=== PATIENT | male | born 1960 | race Caucasian/White ===

== ENCOUNTER 2017-03-20 12:36 | Observation (INO) | payer OTHER ==
[~2017-03-20] VITALS: Ht 182.9 cm; Wt 122.6 kg
--- NOTE | ~2017-03-20 | CON ---
PATIENT'S NAME: AARON HAN [facility] AGE: 56 Y [address] ROOM: [id number] [place], [place] [address] LOCATION: GICU ADMIT DATE: 03/20/2017 Consultation DISCHARGE DATE: FAMILY PHYSICIAN: PHYSICIAN, NO ATTENDING PHYSICIAN: DEENA NELSON DATE OF CONSULTATION: 03/20/2017 REFERRING PHYSICIAN: DEENA MELENDEZ MD NEUROLOGIC CONSULTATION REASON FOR CONSULTATION: The patient was seen on 03/20/2017 at 2:00 p.m. at the request of Dr. Val Henson in the emergency room. 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 Both he, his , and family came from [facility] [place] [place]. They stayed locally in a hotel, and then went for the past 2 days to [place] to a camp site to watch the eclipse. The patient yesterday was outside setting up his tent when he was experiencing some odd symptoms that was quite mixed. He was experiencing sensation of burning of his face, but without any redness. The burning of the face was both sides of the face but not onto the top of the head or elsewhere. He thought that his blood pressure was perhaps high, and he was a bit overheated, and he went to a local urgent care facility. Apparently, he was doing fine there and was discharged and actually felt better later in the day and had a good night. This morning, however, he started to feel a bit weak and queasy and somewhat lightheaded. He also complained about some clumsiness of his left side, and even was noted by his to have difficulty getting his leg out of the car on the way into the emergency room. She also noted that his speech was heavier and a bit slurred. All this lasted for a total of perhaps 1 hour or so, especially just the main symptoms of left leg weakness and perhaps some fullness of his speech. The patient denied any numbness or tingling of the hemibody. He denied any visual complaints. He did not have a headache at that time. He denied any shortness of breath or dyspnea on exertion. On physical exam today, he actually had quite a normal physical exam, and I rated the patient perhaps a one based upon questionable dysmetria on [id number] on the left. Otherwise, the physical exam was completely benign. Based upon the lack of a clear onset in the patient's symptoms suggestive of a stroke and very subtle findings of this nature on physical exam, this would not place the patient as a candidate for tPA. PRIOR MEDICAL HISTORY: He has a history of hypertension. PATIENT'S NAME: AARON HAN [facility] AGE: 56 Y [address] ROOM: [place] [address] LOCATION: [facility] ADMIT DATE: 03/20/2017 Consultation DISCHARGE DATE: FAMILY PHYSICIAN: PHYSICIAN, NO ATTENDING PHYSICIAN: DEENA NELSON SOCIAL HISTORY: The patient is an active gentleman, though he is obese. He denies any smoking; however, he occasionally has alcohol. He is for 24 years. He has 2 children, one boy and one girl, who are present at the emergency room today. CURRENT MEDICATIONS: At home include: 1. Aspirin 81 mg daily. 2. Lisinopril 10 mg p.o. daily. 3. Amlodipine 10 mg p.o. daily. 4. Doxazosin 2 mg p.o. daily. 5. Terfenadine 250 mg for nail fungus. ALLERGIES: NO KNOWN DRUG ALLERGIES. PAST SURGICAL HISTORY: He has bilateral hip replacements. He has had some bilateral hand and wrist surgeries in the past. He is nonspecific. REVIEW OF SYSTEMS: The patient has sensation of lightheadedness, fatigue, as well as possible focal weakness into his legs and associated with a bit of clumsiness of his leg in trying to get in and out of a car. There is questionable slurring of speech, though he is not dysarthric. He is a bit slow with his comprehension, though he has no evidence of any aphasia. He denied any loss of vision or double vision. Cardiac silva, he has a history of hypertension. He is noted to be in sinus bradycardia around 45 beats per minute. He has a long history of bradycardia. PHYSICAL EXAMINATION: GENERAL: The patient is in no acute distress, though he appears a bit withdrawn, slow in mentation. It is unclear if this is his baseline. VITAL SIGNS: Pulse of 45, respiration 12, blood pressure 136/82, temperature is afebrile. NEUROLOGIC: Cranial nerves: Pupils equal and reactive to light and accommodation. Extraocular muscles are intact. He has normal visual jensen. I did not appreciate any nystagmus on finger follow-through. He had normal smooth pursuit on eye following of my finger. There is no evidence of ophthalmoplegia. Neck is supple on flexion and extension. Normal puffing out of the cheeks and normal whistle. The patient has normal power of his tongue opposed into his cheek. Speech is nondysarthric. His power in the bilateral upper and lower extremities proximally and distally is 5/5 with normal bulk PATIENT'S NAME: AARON HAN [facility] AGE: 56 Y [address] ROOM: [id number] [place] [id number] LOCATION: [facility] ADMIT DATE: 03/20/2017 Consultation DISCHARGE DATE: FAMILY PHYSICIAN: PHYSICIAN, NO ATTENDING PHYSICIAN: DEENA NELSON and tone. Reflex is symmetric at the biceps +1, triceps +1, finger flexors +1, patellar reflexes +1, ankle jerk reflexes +1. Plantar reflexes are neutral. Sensory exam is completely normal to light touch and crude touch on his arms, legs, and torso. Rapid alternating hand movements perhaps a bit slower on the left and very subtle question of dysmetria on the left finger-to- nose. Rapid [id number] opposition is fairly normal. IMPRESSION: Mr. Han has risk factors for potential stroke based upon his hypertension. I do not find any clear concrete findings on his physical exam other than some mild potential dysmetria on [id number]-[id number] and may be a bit slower on rapid alternating hand movements on the left. This could suggest a very small brainstem stroke or cerebellar stroke. Seems to have had symptoms commenced yesterday when he was out in the heat, and it sounds as though he got flushed, initially sweaty, but then even potentially simply overheated. Therefore, the patient does need some IV fluid rehydration, and we would aim to keep his blood pressure a bit on the high end of normal until we have the results of the MRI to rule out evidence of the stroke. Certainly not a candidate for tPA based upon his very subtle symptoms and the time of onset of his symptoms have been variable and somewhat slurred and somewhat specific over the past 24 hours. He is currently not having any difficulty with dizziness. When placed in up and down position, he is not complaining about any vertigo symptoms and nothing on the eye movement exam is suggesting of active vertigo. He agreed for the stroke workup to include carotid artery study as well as echocardiogram. The patient is presently on daily aspirin, but we will consider placing Lipitor 80 mg daily. There is evidence for a stroke. Issue of his bradycardia is interesting. He is obese male, and I do not necessarily know if he is that afflictive to have a resting cardiac rhythm in the mid 40s as it may compromise his posture if he becomes dehydrated. Finally, the medication doxazosin is an alpha hina medication, either used for hypertension or for benign prostatic hypertrophy. This medication may have some negative effects as it may not help with autoregulation of blood pressure, could be considered speculative. The patient does ultimately show evidence for stroke. MD SHARMIN TIM/emilianol /[id number] d: 03/20/172048 t: 04/04/17 1639, CONSULTATION REPORT
--- NOTE | ~2017-03-20 | CON ---
PATIENT'S NAME: AARON MCKOY [facility] AGE: 57 Y [address] ROOM: [place] [address] LOCATION: GI ADMIT DATE: 03/20/2017 Consultation DISCHARGE DATE: FAMILY PHYSICIAN: PHYSICIAN, NO ATTENDING PHYSICIAN: DEENA NELSON REFERRING PHYSICIAN: DEENA PECK MD Consult for Dr. Peck. This 57-year-old, pleasantful gentleman was admitted on an 03/20 feeling on and off lightheaded, occasionally slurring of speech noticed by his . He later on was noted to have a little bit decreased coordination and strength in the left upper and lower extremities with some significant visual changes that also have improved ever since. He denied any shortness of breath. No chest pain. No similar condition in the past. No discomfort. No palpitation. Denied any fever. No nausea on vomiting. No abdominal pain. No leg swelling. He was found to be having bradycardia. Denied any tick exposures. PAST MEDICAL HISTORY: He has past history significant of: 1. Hypertension. 2. Arthritis, status post bilateral total hip arthroplasty. 3. Morbidly obese. SOCIAL HISTORY: He does not smoke and/or drink on a regular basis. PHYSICAL EXAMINATION: GENERAL: Alert and oriented now. He can comprehend, express without difficulty. His voice is clear and not wet. NEUROLOGIC: Cranial nerves 2 through 12 are within normal limits. Tongue and soft palate are moving symmetrical. There is no facial droop. No visual cut and/or neglect at the present time. He can at the present time talk. Speech is clear and not wet. At the present time, he is intact. Good bowel and bladder control. VITAL SIGNS: Blood pressure 176/86, temperature 97.6, pulse 50, respirations 16. He is 6 feet tall and weighs 128.5 kg. MEDICATIONS: 1. Lisinopril. 2. Flonase. 3. Cardura. PATIENT'S NAME: AARON MCKOY [facility] AGE: 57 Y [address] ROOM: [place] [address] LOCATION: [facility] ADMIT DATE: 03/20/2017 Consultation DISCHARGE DATE: FAMILY PHYSICIAN: PHYSICIAN, NO ATTENDING PHYSICIAN: DEENA NELSON 4. Claritin. 5. Norvasc. 6. Lipitor. 7. Ibuprofen. 8. Benadryl. 9. Vitamin B6. 10. Melatonin. 11. Sodium chloride 0.9%. 12. Tylenol. 13. Aspirin. 14. Valium. ASSESSMENT AND PLAN: I feel that this gentleman has made good progress. At the present time, I will continue him on PT/OT, which has been already initiated. I feel that he should not drive until he is evaluated by his family physician and I would think that if he continues to stay stable, he could follow with his family physician, however, he should not drive back to home. All the above was explained to him and the signs and symptoms of stroke discussed with him and also how to avoid pre-existing conditions such as obesity, decreased activity, and hypertension and treatment, and they verbalized understanding and in agreement. Thank you for this referral. I will follow alongside with you. MD ESTHER CUELLAR/iliana /[id number] d: 03/21/17 1743 t: 03/22/17 0716, CONSULTATION REPORT
--- NOTE | ~2017-03-20 | HP ---
PATIENT'S NAME: AARON MCKOY [facility] AGE: 56 Y [address] ROOM: [id number] [place], [place] [address] LOCATION: [facility] ADMIT DATE: 03/20/2017 History & Physical DISCHARGE DATE: FAMILY PHYSICIAN: PHYSICIAN, NO ATTENDING PHYSICIAN: DEENA NELSON DATE OF SERVICE: 03/20/2017 CHIEF COMPLAINT: Left-sided weakness. HISTORY OF PRESENT ILLNESS: This is a very pleasant 56-year-old male from [place], who comes in today with several hours of intermittent "feeling off," noting primarily lightheadedness, occasional slurred speech as noted per his , as well as mild left-sided weakness and difficulty getting in and out of the vehicle. 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 The patient has never had an episode similar to this previously. He notes no significant vision changes, no recent heart palpitations, no chest pain, no shortness of breath, and currently notes that his symptoms are improved from initial presentation. The time of onset is not obvious to the patient or , just that it has been within the past 24 hours and to a degree, it has been waxing and waning. The patient denies any recent fevers, chills. No nausea or vomiting associated with the symptoms as well as no chest pain, shortness of breath, abdominal pain, or leg swelling. In the ED, workup notable for negative head CT, found to be bradycardic to 40s. He traveled down to the [facility] for solar eclipse viewing today and notes that he has not been otherwise camping. No recent tick exposure or other significant exposures that he is aware of. He is not on beta hina therapy. He has otherwise been in his usual state of health and taking his normal medications for history of hypertension. PAST MEDICAL HISTORY: 1. Essential hypertension, controlled on lisinopril 10 mg, amlodipine 10 mg, and doxazosin 2 mg daily. 2. Osteoarthritis, status post bilateral total hip arthroplasties. 3. Morbid Obesity, BMI >50. FAMILY HISTORY: A complete family history reviewed and noncontributory to current presentation. SOCIAL HISTORY: The patient lives in [place]. Does not endorse any significant chewing tobacco nor smoking exposure of late. Also, notes he is an occasional drinker PATIENT'S NAME: AARON MCKOY [facility] AGE: 56 Y [address] ROOM: [id number] [place], [place] [address] LOCATION: [facility] ADMIT DATE: 03/20/2017 History & Physical DISCHARGE DATE: FAMILY PHYSICIAN: PHYSICIAN, NO ATTENDING PHYSICIAN: DEENA NELSON of several alcoholic beverages on the weekends, but none in the last few days. As noted, he lives in [place] with his and family. REVIEW OF SYSTEMS: Complete review of systems performed and negative except as noted above, history obtained primarily from the patient as well as his at bedside. MEDICATIONS: 1. Lisinopril 10 mg daily. 2. Doxazosin 2 mg daily. 3. Amlodipine 10 mg daily. 4. Aspirin 81 mg daily. 5. Terbinafine 250 mg. ALLERGIES: NO KNOWN DRUG ALLERGIES. PHYSICAL EXAMINATION: VITAL SIGNS: Reviewed in the emergency department. Notable for pulse 43, blood pressure 163/78, respiratory rate 16, afebrile, saturating 97% on room air. Noting pain of 2/10 (headache). GENERAL: The patient is alert and in no acute distress. Cooperative with exam. HEENT: Head is normocephalic and atraumatic. Notable for PERRL. EOMI. No nystagmus appreciated. Mucous membranes moist. NECK: Without significant carotid bruit. No thyromegaly. No JVD. Supple. CARDIOVASCULAR: Bradycardic without appreciable murmurs, rubs, or gallops. 2+ pulses bilaterally including dorsalis pedis and radial. RESPIRATIONS: Normal effort. Clear to auscultation bilaterally. Saturating well on room air. ABDOMEN: Obese. Soft. Nontender. Midline ventral hernia appreciated. EXTREMITIES: Without appreciable edema. NEUROLOGIC: Notable for occasionally slowed speech with rare difficulty with word findings noted more based on interaction with the patient's than in my direct examination currently. Rapid alternating movements of left side upper extremity mildly slowed compared to the right. Thought processes seem minimally slowed. Rest of neurologic exam largely benign including normal reflexes bilaterally including patellar and Achilles as well as brachioradialis. Normal strength 5/5 with packer dried beef bilaterally as well as plantar and dorsiflexion of the feet and hip motions. No nystagmus as noted above. No appreciable visual field deficit. LABORATORY DATA: Labs in the emergency room: White blood cell count 5.9, hemoglobin 15.1, platelets 209. INR 0.97. Troponin less than 0.04. Metabolic panel pending. PATIENT'S NAME: AARON MCKOY [facility] AGE: 56 Y [address] ROOM: [place] [address] LOCATION: [facility] ADMIT DATE: 03/20/2017 History & Physical DISCHARGE DATE: FAMILY PHYSICIAN: PHYSICIAN, NO ATTENDING PHYSICIAN: DEENA NELSON EKG showing sinus bradycardia. ASSESSMENT: 1. Transient ischemic attack versus cerebrovascular accident with mild residual deficits, not a candidate for tPA due to time to presentation. 2. Essential hypertension. 3. Obesity. PLAN: We will admit the patient to observation status and follow through with further evaluation for possible stroke given ongoing left-sided mild symptoms though very minimal at this point. Concern exists for potentially a cerebellar stroke given the predominance of balance difficulty as the primary symptom. Dr. Peck has been consulted, saw patient, and we discussed face- to-face in the emergency department. We will pursue MRI brain with and without contrast as well as MRA of head and neck, carotid Dopplers, and transthoracic echocardiogram. We will also start high-intensity statin with atorvastatin 80 mg daily and continue aspirin. Concern does exist that given patient's ongoing bradycardia, there may be some association between his bradycardia and lightheadedness, though this does not entirely explain his presentation nor his mild focal neurologic deficits. He reports heart rates chronically in the 40s. We will continue to appreciate Neurology's assistance going forward and consider cardiology consultation if symptoms recur and felt to contribute to symptoms. The patient is full code. Time spent on the date of admission with as [id number]-lgni interaction and coordinating care is 35 minutes. MD HORTENCIA MESA/iliana /[id number] D: [id number] T: [id number] HISTORY & PHYSICAL
--- NOTE | ~2017-03-20 | ER ---
PATIENT'S NAME: AARON MCKOY [facility] AGE: 57 Y [address] ROOM: [place] [address] LOCATION: GICU ADMIT DATE: 03/20/2017 ER/Outpatient Report DISCHARGE DATE: FAMILY PHYSICIAN: PHYSICIAN, NO ATTENDING PHYSICIAN: DEENA NAPIER TIME OF ARRIVAL: 1236 hours. TIME SEEN: 1308 hours. IDENTIFICATION: A 57-year-old male. CHIEF COMPLAINT: Left-sided weakness and numbness. HISTORY OF PRESENT ILLNESS: The patient is a 57-year-old male from [place] who is visiting here in town. Yesterday, felt a little bit dizzy and not quite right, went to an Urgent Care Center and was found to have some bradycardia, had an EKG and some lab work done, that was otherwise normal. This morning around breakfast at 8:30, he felt again a little bit lightheaded or off balance, a little weak, just not his usual self and then around 10 a.m. noted some weakness of his left-side and his thought he had some slurred speech, sounds like he has had a couple of drinks, which he has not. He does have a history of hypertension, this has never happened to him before, they are camping so at 1st they thought maybe he was just overheated. ALLERGIES: NO KNOWN DRUG ALLERGIES. CURRENT MEDICATIONS: 1. Aspirin 81 mg daily. 2. Lisinopril 10 mg daily. 3. Amlodipine 10 mg daily. 4. Doxazosin 2 mg daily. 5. Terbinafine 250 mg daily. MEDICAL PROBLEMS: Hypertension. PRIOR SURGERIES: Bilateral hip replacements, bilateral hand and wrist surgery. PATIENT'S NAME: AARON MCKOY [facility] AGE: 57 Y [address] ROOM: [place] [id number] LOCATION: GICU ADMIT DATE: 03/20/2017 ER/Outpatient Report DISCHARGE DATE: FAMILY PHYSICIAN: PHYSICIAN, DOMENICO ATTENDING PHYSICIAN: DEENA NAPIER SOCIAL HISTORY: The patient is . They live in [place]. Tobacco use, denies. Alcohol use, averages 2 times per month. Drug use, denies. REVIEW OF SYSTEMS: All systems reviewed and negative other than what is noted in the HPI. FAMILY HISTORY: Positive for strokes. PHYSICAL EXAMINATION: VITAL SIGNS: Weight 285 pounds, blood pressure 186/84, pulse 45, respirations 16, temperature 98.4, and sats 97% on room air. GENERAL: A 57-year-old male in no acute distress. HEENT: Head: Normocephalic, atraumatic. Ears: TMs translucent both ears. Eyes: Pupils equal and reactive to light and accommodation. Extraocular movements intact. Nose: Mucosa pink. No lesions or drainage. Mouth: No lesions. Pharynx benign. NECK: Supple. No lymphadenopathy. LUNGS: Clear to auscultation. HEART: Sinus bradycardia. No murmur, rub, or gallop. ABDOMEN: Bowel sounds present. Soft, nondistended. No hepatosplenomegaly. No palpable masses. Nontender. SKIN: [place], warm, and dry. No lesions or rashes noted. NEURO: The patient is alert and oriented x4. Cranial nerves 2 through 12 grossly intact. 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 Sensation is intact to light touch. NIH stroke scale score is 1. LABORATORY DATA: Troponin I less than 0.040. Renal panel unremarkable. Blood sugar is 114. CBC is normal. INR 0.97. EKG sinus bradycardia at 43 beats per minute. No acute ST-elevation or depression. The patient's blood pressure improved to 159/77, heart rate remained in the mid 40s, head CT without contrast, no acute findings per Radiology. IMPRESSION: 1. Cerebrovascular accident versus transient ischemic attack. 2. Hypertension. PLAN: Dr. Peck consulted, the patient does not have a definite start time and NIH stroke scale score is minimal, tPA was not recommended at this point. The PATIENT'S NAME: AARON MCKOY [facility] AGE: 57 Y [address] ROOM: [address] [place] [id number] LOCATION: [facility] ADMIT DATE: 03/20/2017 ER/Outpatient Report DISCHARGE DATE: FAMILY PHYSICIAN: PHYSICIAN, NO ATTENDING PHYSICIAN: DEENA NAPIER patient will be admitted per hospitalist. Dr. Napier evaluated the patient in the ER as well as Dr. Peck. The patient and his understand and agree and all questions have been answered. MD JADE BEARD/iliana /[id number] d: 03/21/1744 t: 03/29/172040, OUTPATIENT REPORT
--- NOTE | ~2017-03-20 | ECHO ---
Transthoracic Echocardiography Report (TTE) Demographics Patient Name AARON MCKOY Date of Study 03/21/2017 Patient Number [id number] Visit Number [id number] Date of 1960 Room Number G6216 Accession Number [id number] Gender Male Age 57 year(s) Referring Cisco Marin Lending Manager Jamal Healy RVT Physician Karthikeyan Solis CRUDE TESTER Physician Interpreting Rod Rushing Assistant Manager Bilingual Physician Allan HEARD Supervising Ordering Physician Cisco Marin MD/MLP Nurse Stress Intensive Care Nurse Conclusions Contractility Score Summary Normal Left Ventricular contractility was noted. Summary The estimated left ventricular ejection fraction is 60-65%. Moderate concentric left ventricular hypertrophy. Diastolic assessment reveals Grade II pseudonormal diastolic function. . Mildly reduced right ventricular function. The right atrium is mildly dilated. IVC measures 1.99 cm with partial inspiratory collapse. Procedure Type of Study TTE procedure:2D Echocardiogram. Procedure Date Date: 03/21/2017 Start: 07:54 AM Study Location: Inpatient Portable Technical Quality: Limited visualization due to body habitus. Indications:CVA. Appropriate Use Criteria: 9 Patient Status: Routine HR: 43 bpm M-Mode/2D Measurements LV Diastolic Dimension: 5 cm LV Systolic Dimension: 3.08 cm LV Septum Diastolic: 1.7 cm LV PW Diastolic: 1.63 cm AO Root Dimension: 2.9 cm Cardiac Output: 3.04 l/min AV Cusp Separation: 2.4 cm RV Diastolic Dimension: 3.48 cm LVOT: 2.1 cm LVOT VTI: 20.4 cm RV Base: 2.76 cm LV Stroke volume: 70.62 ml RV Length: 7.07 cm TAPSE: 1.36 cm TDI-S': 11.1 cm/s Doppler Measurements AV Peak Velocity: 1.28 m/s MV Peak E-Wave: 0.73 m/s AV Peak Gradient: 6.55 mmHg MV Peak A-Wave: 0.45 m/s AV Mean Gradient: 3 mmHg MV E/A Ratio: 1.62 LVOT Peak Velocity: 0.74 m/s PV Peak Velocity: 0.88 m/s PV Peak Gradient: 3.13 mmHg E' Septal Velocity: 0.08 m/s A' Septal Velocity: 0.13 m/s E' Lateral Velocity: 0.08 m/s A' Lateral Velocity: 0.04 m/s Findings Left Ventricle Moderate concentric left ventricular hypertrophy. Diastolic assessment reveals Grade II pseudonormal diastolic function. . Right Ventricle Mildly reduced right ventricular function. Left Atrium The left atrium is mildly dilated. Right Atrium The right atrium is mildly dilated. IVC measures 1.99 cm with partial inspiratory collapse. Mitral Valve Mild mitral annular calcification. Aortic Valve The aortic valve was not well imaged. Tricuspid Valve Normal tricuspid valve structure and function. Pulmonic Valve Normal pulmonic valve structure and function. Pericardial Effusion No evidence of pericardial effusion. Miscellaneous Visualized portions of the aortic root and ascending aorta appear normal in size. Pleural Effusion No evidence of pleural effusion. Contractility Score LV regional wall motion:(0-Non visualized 1-Normal 2-Hypokinesis 3-Akinesis 4-Dyskinesis 5-Aneurysm) Signature dtt: Pedro Velasco dtd: 03/21/17 0754 Physician Self Edit
--- NOTE | ~2017-03-20 | DS ---
PATIENT'S NAME: AARON MCKOY [facility] AGE: 57 Y [address] ROOM: [place] [address] LOCATION: GICU ADMIT DATE: 03/20/2017 Discharge Summary DISCHARGE DATE: 03/22/2017 FAMILY PHYSICIAN: PHYSICIAN, NO ATTENDING PHYSICIAN: Will Napier PRIMARY DIAGNOSES: 1. Dysarthria. 2. Left-sided weakness. 3. Essential hypertension. 4. Osteoarthritis, generalized. 5. Morbid obesity. 6. Benign prostatic hypertrophy. 7. Asymptomatic bradycardia. OPERATIONS/PROCEDURES: 1. CT scan of the brain obtained on 03/20/2017, negative for any acute intracranial process. 2. MRI scan of the brain obtained on 03/20/2017, negative for stroke, but demonstrating white matter small-vessel ischemic changes. 3. MRA of the neck and brain, negative for any acute process. 4. Echocardiography obtained on 03/21/2017, demonstrated a normal ejection fraction of 60%-65%, grade 2 pseudonormal diastolic dysfunction and left ventricular hypertrophy. HISTORY OF PRESENTING ILLNESS/REASON FOR ADMISSION: Please refer to the H and P dictated on 03/20/2017. HOSPITAL COURSE: The patient was admitted to the hospital as noted above with a presumptive diagnosis of acute stroke symptoms. These included dysarthria and some left-sided weakness. His left-sided weakness improved over the course of his initial evaluation. He was placed in the intensive care unit. He was placed on the stroke/TIA pathway. He received antiplatelet therapy and statin therapy as well as a multifaceted evaluation with Physical Therapy, Occupational Therapy, Speech Therapy, and Physiatry. Neurology was also consulted. MRI scan did not show evidence for acute stroke. Symptoms were felt to be consistent with ischemic stroke by Neurology and he was recommended to continue with antiplatelet therapy and statin therapy. He was significantly hypertensive at the point of his initial evaluation. Blood pressures remained hypertensive. Careful management was provided. After 24 hours, gradual attempts to improve his blood pressure were made. PATIENT'S NAME: AARON MCKOY [facility] AGE: 57 Y [address] ROOM: [place] [address] LOCATION: GICU ADMIT DATE: 03/20/2017 Discharge Summary DISCHARGE DATE: 03/22/2017 FAMILY PHYSICIAN: PHYSICIAN, NO ATTENDING PHYSICIAN: Will Napier Because of asymptomatic bradycardia, the beta-hina was ultimately discontinued. He was continued on ROYER inhibitor therapy as well as thiazide therapy. Norvasc was optimized and eventually clonidine was added. Upon presentation, his systolic blood pressure was 176 and peaked at 192. After the addition of clonidine, his blood pressures resolved into the 160s and 150s. The patient demonstrated some persistent dysarthria but did not have any problems with chewing or swallowing. No significant physical deficit. Physical Therapy, Occupational Therapy, and Speech Therapy continued to work with him. Based on relative stability and after the addition of antiplatelet therapy, statin therapy, and a full range of evaluations as outlined above, it was felt he would be stable enough for discharge to home in order to travel back to [place] and establish care with his primary care physician there as well as re-evaluation by Neurology. DISCHARGE INSTRUCTIONS: DIET: Cardiac prudent as tolerated. ACTIVITY: As tolerated. Observe strict fall precautions. No driving. MEDICATIONS: 1. Amlodipine 10 mg p.o. daily. 2. Aspirin 81 mg p.o. daily. 3. Atorvastatin 80 mg p.o. at bedtime. 4. Clonidine 0.1 mg p.o. b.i.d. 5. Cardura 2 mg p.o. q.a.m. 6. Flonase nasal spray two sprays each nostril daily. 7. HCTZ 25 mg p.o. q.a.m. 8. Lisinopril 40 mg p.o. daily. 9. Cetirizine 10 mg p.o. daily. 10. Acetaminophen 650 mg p.o. q.4 hours p.r.n. pain or fever. 11. Benadryl 25 mg p.o. at bedtime p.r.n. sleep. 12. Melatonin 2.5 mg p.o. at bedtime p.r.n. sleep. FOLLOWUP: He will follow up with his primary care provider in [place] in 1 to 3 days. CONDITION ON DISCHARGE: Fair. PATIENT'S NAME: AARON MCKOY [facility] AGE: 57 Y [address] ROOM: [place] [address] LOCATION: [facility] ADMIT DATE: 03/20/2017 Discharge Summary DISCHARGE DATE: 03/22/2017 FAMILY PHYSICIAN: PHYSICIAN, NO ATTENDING PHYSICIAN: Will Napier Total time spent on discharge process 45 minutes. BETHANY J MD ANIBAL TREVIZO/iliana /[id number] d: 03/25/17 0444 t: 04/05/17 1720, DISCHARGE SUMMARY
--- NOTE | ~2017-03-20 | ENPV ---
Carotid Duplex Study Demographics Patient Name AARON MCKOY Date of Study 03/21/2017 Patient Number [id number] Gender Male Date of 1960 Age 57 Visit Number [id number] Height 72 Accession Number [id number] Weight 285.01 Referring Cisco Marin Interpreting Rod Rushing Physician Karthikeyan Slois CRNA Physician A Physician Ordering Cisco Marin Marketing Recruiter Physician Paralegal Supervisor Jamal Healy [facility] Conclusions Summary The right internal carotid artery has mild, 1-39%, plaque and stenosis. The right vertebral artery is present with antegrade flow. The left internal carotid artery has mild, 1-39%, plaque and stenosis. The left vertebral artery is present with antegrade flow. Procedure Type of Study: Cerebral:Carotid, Carotid Doppler Bilateral. Indications for Study:CVA. Appropriate Use Criteria:9 Patient Status:Routine. Study Location:Inpatient Portable. Technical Quality:Adequate visualization. Velocities are measured in cm/s ; Diameters are measured in cm Carotid Right Measurements Carotid Left Measurements + +--------+--------+ + + + +--------+ --------+ + + !Location !PSV !EDV !Angle !%Stenosis ! !Location !PSV ! EDV !Angle !%Stenosis ! + +--------+--------+ + + + +--------+ --------+ + + !Prox CCA !103 !23 !60 ! ! !Prox CCA !96 ! 25 !58 ! ! + +--------+--------+ + + + +--------+ --------+ + + !Dist CCA !70 !16 !60 ! ! !Dist CCA !86 ! 19 !58 ! ! + +--------+--------+ + + + +--------+ --------+ + + !Prox ICA !61 !22 !58 ! ! !Prox ICA !52 ! 20 !42 ! ! + +--------+--------+ + + + +--------+ --------+ + + !Mid ICA !46 !20 !10 ! ! !Mid ICA !89 ! 28 !42 ! ! + +--------+--------+ + + + +--------+ --------+ + + !Dist ICA !64 !24 !46 ! ! !Dist ICA !49 ! 18 !8 ! ! + +--------+--------+ + + + +--------+ --------+ + + !Prox ECA !69 ! !46 ! ! !Prox ECA !66 ! !28 ! ! + +--------+--------+ + + + +--------+ --------+ + + !Vertebral !18 ! !60 ! ! !Vertebral !42 ! !58 ! ! + +--------+--------+ + + + +--------+ --------+ + + !Subclavian !76 ! ! ! ! !Subclavian !111 ! ! ! ! + +--------+--------+ + + + +--------+ --------+ + + - There is antegrade vertebral flow noted on the right side. - There is antegrade verte bral flow noted on the left side. - Add'l Measurements:ICAPSV/CCAPSV 0.62.ICAEDV/CCAEDV 1.05. - Add'l Measurements:ICAPS V/CCAPSV 0.93.ICAEDV/CCAEDV 1.12. Impressions Right Impression Tortuous right internal carotid artery. Left Impression Tortuous left internal carotid artery. Signature dtt: Pedro Velascod: 03/21/17 0819 Physician Self Edit
[2017-03-20 13:27] LABS: BASOPHIL % 0.7 %; EOSINOPHIL # 0.2 K/uL (0.0-0.5); EOSINOPHIL % 2.5 %; HEMATOCRIT 42.8 % (37.0-53.0); HEMOGLOBIN 15.1 g/dL (12.0-17.0); IMMATURE GRANULOCYTE % 0.2 %; LYMPHOCYTE # 1.1 K/uL (0.8-4.0); LYMPHOCYTE % 18.4 %; MCH 31.1 pg (27.0-34.0); MCHC 35.3 gm/dL (32.0-36.5); MCV 88.1 fl (83.0-98.0); MONOCYTE # 0.5 K/uL (0.0-1.0); MONOCYTE % 7.6 %; MPV 9.7 fl (9.4-12.4); NEUTROPHIL # (ANC) 4.2 K/uL (1.4-9.0); NEUTROPHIL % 70.6 %; NRBC % 0 /100WBC (0-0.00); PLATELET COUNT 209 K/uL (150-450); RBC 4.86 M/uL (4.00-6.00); RDW-CV 12.2 % (11.9-14.6); WBC 5.9 K/uL (4.0-11.0)
[2017-03-20 13:33] LABS: INR - (THERAPEUTIC) 0.97 (0.92-1.07); PROTIME 10.2 SECONDS (9.8-11.4); PTT 25 SECONDS (25-32)
[2017-03-20 13:51] LABS: ALBUMIN 3.9 gm/dL (3.5-5.0); ANION GAP 11.7 (10.0-19.0); BLOOD UREA NITROGEN 14 mg/dL (6-24); CALCIUM 8.6 mg/dL (8.5-10.5); CHLORIDE 108 mMol/L (96-110); CO2 25 mMol/L (22-32); CREATININE 0.9 mg/dL (0.6-1.3); PHOSPHORUS 2.1 mg/dL (2.5-4.9); POTASSIUM 3.7 mMol/L (3.7-5.1); SODIUM 141 mMol/L (135-145)
[2017-03-20] MEDS ORDERED: FLONASE 50 MCG/16 GM NOSE (18:20)
[2017-03-20] MEDS ORDERED: IBUPROFEN400 MG PO (18:21)
[2017-03-20] MEDS ORDERED: ZYRTEC10 M3 PO (18:24)
[2017-03-20] MEDS ORDERED: MELATONIN2.5 MG PO (18:26)
[2017-03-20] MEDS ORDERED: CARDURA2 MG PO (18:27)
[2017-03-20] MEDS ORDERED: NORVASC10 MG PO (18:28)
[2017-03-20] MEDS ORDERED: LISINOPRIL40 MG PO (18:29)
[2017-03-20] MEDS ORDERED: BENADRYL25 MG PO (18:30)
--- NOTE | 2017-03-20 18:34 | NUR ---
Vacationing here from [place], with , gordon and son to see the Eclipse. Started feeling dizzy and lightheaded in the morning and last all day at the camp at [facility]. In the afternoon, went to a walk in urgent care clinic and blood pressure was checked. "Take it easy, be sure to take medications daily, since missing meds the day before. Low HR and High BP noted." [place] in the night. In the morning started and drove into [facility], started feeling light headed again, came back to the campground and rested. Left leg would not move the same as the left. Left hand was weak. Lips were numb. noticed that speech sounded like he was drunk. I had to be helped out of the chair and felt weak in the ER." CT of head in the ER. EKG in ER. Brought to room 6216 per cart and moved self to the bed.
--- NOTE | 2017-03-21 05:14 | NUR ---
Significant Event: PATIENT IS A/O X3, DENIES PAIN, NUMBNESS OR TINGLING. LS CLEAR, O2 >94 ON RA. BRADYCARDIC, HR 40S ALL SHIFT. SBP BETWEEN 150-170S CONSISTENTLY, OCC SBP IN 190S, MD AWARE, NO NEW ORDERS. SWALLOWING ASSESSED, PASSED, ADV TO CLEAR LIQUID DIET. NO ATTEMPTS TO SELF TRANSFER THIS SHIFT, BED ALARMS ON AND FUNCTIONING. Follow up: CAROTOID DOPPLER ET ECHO THIS AM
[2017-03-21 05:17] LABS: ANION GAP 9.8 (10.0-19.0); BLOOD UREA NITROGEN 10 mg/dL (6-24); CALCIUM 7.8 mg/dL (8.5-10.5); CHLORIDE 109 mMol/L (96-110); CO2 27 mMol/L (22-32); CREATININE 0.8 mg/dL (0.6-1.3); POTASSIUM 3.8 mMol/L (3.7-5.1); SODIUM 142 mMol/L (135-145)
[2017-03-21] MEDS ORDERED: BISOPROLOL-HCT1 EACH PO (11:22)
--- NOTE | 2017-03-21 12:44 | NUR ---
Introduced self and role of care management to patient and his . They live in [facility]. He states that he is able to do all his own ADL's. His states she will be able to assist if needed. He plans on returning home on discharge. He denies any needs at this time. Will continue to follow.
--- NOTE | 2017-03-21 16:56 | NUR ---
Significant Event: AAOx3, on last assessment had dullness in L) great three toes. NIHSS 0. Pupils 3mm brisk. Equal moderate strength throughout all extremities. SBP 140-170's, HR 40-50's, 2+ pulses, absent edema. L.S. clear and diminished in lower lobes on RA. B.S. active. Urinates per urinal or up to BR SBA. PIV R) hand SL'd. Cardiac diet. Echo and Carotid dopplers performed today. Follow up: Plan for home tomorrow.
--- NOTE | 2017-03-22 05:54 | NUR ---
Significant Event: Patient is a/o x 3. Denies n/t. C/O pain to R)hip. Tylenol given, relief noted. NIHSS=0 this shift. Equal strength throughout. Follows commands. Room air. Bradycardia with HR low 40s. SBP 150s-170s this shift. No bm this shift. Ambulates SBA. PIV to R)hand SL. Accuchecks q6. Follow up: Home today?
[2017-03-22 06:10] LABS: ANION GAP 9.7 (10.0-19.0); BLOOD UREA NITROGEN 11 mg/dL (6-24); CALCIUM 8.6 mg/dL (8.5-10.5); CHLORIDE 107 mMol/L (96-110); CO2 29 mMol/L (22-32); CREATININE 0.9 mg/dL (0.6-1.3); POTASSIUM 3.7 mMol/L (3.7-5.1); SODIUM 142 mMol/L (135-145)
[2017-03-22] MEDS ORDERED: ASPIRIN (CHILDR81 MG PO (13:29)
[2017-03-22] MEDS ORDERED: CATAPRES0.1 MG PO (13:30)
[2017-03-22] MEDS ORDERED: LIPITOR80 MG PO (13:30)
[2017-03-22] MEDS ORDERED: HYDRODIURIL25 MG PO (13:32)
[2017-03-22] MEDS ORDERED: TYLENOL325 MG PO (13:35)
--- NOTE | 2017-03-22 15:52 | NUR ---
Significant Event: AAox3, occasional N/T to L) three great fingers. Pupils 3mm brisk. Denies DE SOUZA or blurred vision. Equal moderate strength throughout. Slight drift to LUE/LLE, NIHSSS 2. SBP 160-180's, HR 40-50's. 2+ pulses, absent edema. L.S. clear and diminished in lower lobes on RA. B.S. active, last BM 03/21. Urinates per urinal, up SBA with GB to BR. PIV R) hand SL'd. Follow up: Discharged at 1440, gave education on stroke information and handout, also discussed new and stopped medications, activity and dietary recommendations, no driving, follow up appointments and discontinued telemetry, IV prior to dismissal. at bedside, transport helped with transfer to private vehicle.
== END 2017-03-22 14:45 | disposition disaster alternative care site (69) ==
LOC: GMED 12:36 → GICU 14:08
PROVIDERS: Family Medicine; Specialist; ADMIT Internal Medicine
DX: R47.1 Dysarthria and anarthria (principal); R29.898 Other symptoms and signs involving the musculoskeletal system; M19.90 Unspecified osteoarthritis, unspecified site; N40.0 Benign prostatic hyperplasia without lower urinary tract symptoms; R00.1 Bradycardia, unspecified; I10 Essential (primary) hypertension; E66.01 Morbid (severe) obesity due to excess calories; Z68.43 Body mass index [BMI] 50.0-59.9, adult; Z79.82 Long term (current) use of aspirin; Z79.899 Other long term (current) drug therapy; I51.7 Cardiomegaly
CPT/HCPCS: A9270; G0378; J7030